=== PATIENT | female | born 1990 | race Native Hawaiian/Other Pacific Islander ===

== ENCOUNTER 2019-04-11 22:46 | Emergency (ER) | payer SELFPAY ==
--- NOTE | 2019-04-11 23:29 | Emergency Department Report ---
ED Syncope HPI - General Chief Complaint: Syncope Stated Complaint: HEAD PAIN/SYNCOPE Time Seen by Provider: 04/11/19 23:27 Source: patient, EMS Exam Limitations: no limitations - History of Present Illness Initial Comments: Patient is a 29-year-old female that presents to emergency room with complaints of dizziness and syncope. Patient states she was playing soccer and she became lightheaded and dizzy and passed out. Patient states she hit the back of her head after she passed out. Patient states she is having a severe headache since hitting her head. Patient states her loss of consciousness was brief and her loss consciousness was witnessed by other players on the field. Patient states her headache as a 10 out of 10. Patient states is not radiating. Patient den ies neck pain. Patient states her last menstrual period was 02/24/19 and patient is irregular. Patient denies possibility of . Patient states she is not sexually active. Timing/Prior Episodes: single episode today Precipitating Factors: Positive: blurred vision, lightheadedness Loss of Consciousness: brief (seconds) Current Symptoms: dizziness, headache, lightheadedness, nausea. denies: blurred vision, chest pain, diaphoresis, injury, loss of bladder control, loss of bowel control, motionless, pale, shallow/rapid breathing, weak/absent pulse, weakness - Related Data Allergies/Adverse Reactions: Allergies No Known Allergies Allergy (Unverified 04/11/19 23:21) ED Review of Systems ROS: Stated complaint: HEAD PAIN/SYNCOPE Other details as noted in HPI Constitutional: denies: chills, fever Eyes: denies: eye pain, eye discharge, vision change ENT: denies: ear pain, throat pain Respiratory: denies: cough, shortness of breath, wheezing Cardiovascular: denies: chest pain, palpitations Endocrine: no symptoms reported Gastrointestinal: denies: abdominal pain, nausea, diarrhea Genitourinary: denies: urgency, dysuria, discharge Musculoskeletal: denies: back pain, joint swelling, arthralgia Skin: denies: rash, lesions Neurological: headache. denies: weakness, paresthesias Psychiatric: denies: anxiety, depression Hematological/Lymphatic: denies: easy bleeding, easy bruising ED Past Medical Hx - Past Medical History Previous Medical History?: No - Surgical History Past Surgical History?: No - Family History Family history: no significant - Social History Smoking Status: Never Smoker Substance Use Type: None ED Physical Exam - General Limitations: No Limitations General appearance: alert, in no apparent distress - Head Head exam: Present: atraumatic, normocephalic, other (tenderness to the posterior head and superior neck.) - Eye Eye exam: Present: normal appearance, PERRL Pupils: Present: normal accommodation - ENT ENT exam: Present: mucous membranes moist - Neck Neck exam: Present: normal inspection, tenderness - Respiratory Respiratory exam: Present: normal lung sounds bilaterally. Absent: respiratory distress, wheezes, rales - Cardiovascular Cardiovascular Exam: Present: regular rate, normal rhythm. Absent: systolic murmur, diastolic murmur, rubs, gallop - GI/Abdominal GI/Abdominal exam: Present: soft, normal bowel sounds. Absent: distended, tenderness, guarding - Rectal Rectal exam: Present: deferred - Extremities Exam Extremities exam: Present: normal inspection, full ROM - Back Exam Back exam: Present: normal inspection - Neurological Exam Neurological exam: Present: alert, oriented X3 - Psychiatric Psychiatric exam: Present: normal affect, normal mood - Skin Skin exam: Present: warm, dry, intact, normal color. Absent: rash ED Course Vital Signs 04/11/19 23:11 Temperature 98.4 F Pulse Rate 88 Respiratory 16 Rate Blood Pressure 129/74 O2 Sat by Pulse 100 Oximetry - Reevaluation(s) Reevaluation #1: Patient states her headaches better but would like some Tylenol. Discussed all results with patient. Patient stable at discharge. Patient will be discharged home.. Patient agrees to plan of care. Patient given discharge instructions. Patient voiced understanding of discharge instructions 04/12/19 01:59 ED Medical Decision Making - Lab Data Result diagrams: 04/11/19 23:33 04/11/19 23:33 - EKG Data -: EKG Interpreted by Oh EKG shows normal: sinus rhythm, axis, intervals, QRS complexes, ST-T waves Rate: normal - Radiology Data Radiology results: report reviewed PROCEDURE: CT CERVICAL SPINE WO CON TECHNIQUE: Computerized tomography of the cervical spine was performed from the skull base to T1 without contrast material. CT DOSE LENGTH PRODUCT: 499.3 mGycm HISTORY: WALSH. SYNCOPE. COMPARISONS: None . FINDINGS: The alignment of the vertebral bodies is normal. No acute fracture or dislocation. The heights of vertebral bodies and the disc spaces are maintained. Spinal canal is adequate at all levels. C1-2: No significant abnormality . C2-3: No significant abnormality . C3-4: No significant abnormality . C4-5: No significant abnormality . C5-6: No significant abnormality . C6-7: No significant abnormality . C7-T1: No significant abnormality . Fractures: None . Other: No additional findings . IMPRESSION: Normal CT cervical spine . PROCEDURE: CT HEAD/BRAIN WO CON TECHNIQUE: Computerized tomography of the head was performed without contrast material. CT DOSE LENGTH PRODUCT: 805.4 mGycm HISTORY: HEAD INJURY. WALSH. SYNCOPE COMPARISONS: None . FINDINGS: Skull and scalp: Normal . Paranasal sinuses: Significant opacification of the left maxillary sinus . Ventricles and subarachnoid spaces: Normal . Cerebrum: No evidence of hemorrhage, acute infarction or mass . Cerebellum and brainstem: No evidence of hemorrhage, acute infarction or mass . Vasculature: Normal . Other: None . ASPECTS: 10 IMPRESSION: There is no evidence of an acute intracranial process . - Medical Decision Making Patient is a 29-year-old female presents emergency room with exertional syncope. Patient's syncope most likely secondary to dehydration and heat exhaustion and adequate water intake. The patient is stable for discharge. Patient's labs are unremarkable. Patient had a CT of head and neck are negative. - Differential Diagnosis syncope. Vasovagal. Head injury. Headache. Critical care attestation.: If time is entered above; I have spent that time in minutes in the direct care of this critically ill patient, excluding procedure time. ED Disposition Clinical Impression: Neck pain Syncope Qualifiers: Syncope type: heat syncope Encounter type: initial encounter Qualified Code(s): T67.1XXA - Heat syncope, initial encounter Head injury Qualifiers: Encounter type: initial encounter Qualified Code(s): S09.90XA - Unspecified injury of head, initial encounter Headache Qualifiers: Headache type: post-traumatic Headache chronicity pattern: acute headache Intractability: not intractable Qualified Code(s): G44.319 - Acute post- traumatic headache, not intractable Heat exhaustion Qualifiers: Encounter type: initial encounter Qualified Code(s): T67.5XXA - Heat exhaustion, unspecified, initial encounter Disposition: DC-01 TO HOME OR SELFCARE Is pt being admited?: No Does the pt Need Aspirin: No Condition: Stable Instructions: Syncope (ED), Dehydration (ED), Muscle Cramp (ED), Heat Exhaustion (ED) Additional Instructions: Patient to follow-up with primary care in 2-3 days. Patient to take Tylenol or ibuprofen when necessary for pain. Patient to return to ER if condition wors ens. Patient to take meds as directed. Patient to increase water. Patient to rest. Patient cannot return to physical activity until cleared by primary care. Referrals: PRIMARY CARE, [Primary Care Provider] - 2-3 Days Time of Disposition: 01:59
[2019-04-11 23:45] LABS: Basophils # (Auto) 0.1 K/mm3 (0.0-0.1); Basophils % (Auto) 0.7 % (0.0-1.8); Eosinophils # (Auto) 0.1 K/mm3 (0.0-0.4); Eosinophils % (Auto) 1.7 % (0.0-4.3); Hematocrit 37.6 % (30.3-42.9); Hemoglobin 12.8 gm/dl (10.1-14.3); Lymphocytes # (Auto) 1.9 K/mm3 (1.2-5.4); Lymphocytes % (Auto) 22.9 % (13.4-35.0); Mean Corpuscular HGB Conc 34 % (30-34); Mean Corpuscular Volume 84 fl (79-97); Monocytes # (Auto) 0.4 K/mm3 (0.0-0.8); Monocytes % (Auto) 4.4 % (0.0-7.3); Platelet Count 300 K/mm3 (140-440); Red Blood Count 4.49 M/mm3 (3.65-5.03)
[2019-04-12 00:04] LABS: BUN/Creatinine Ratio 19; Blood Urea Nitrogen 17 mg/dL (7-17); Calcium 9.6 mg/dL (8.4-10.2); Hemolysis Index 5
[2019-04-12] MEDS ORDERED: TORADOL IV ONE (00:07)
[2019-04-12] MEDS ORDERED: NACL 0.9% 1000 ML 1,000 ML IV ONE (00:29)
--- NOTE | 2019-04-12 01:43 | Cat Scan Report ---
PROCEDURE: CT HEAD/BRAIN WO CON TECHNIQUE: Computerized tomography of the head was performed without contrast material. CT DOSE LENGTH PRODUCT: 805.4 mGycm HISTORY: HEAD INJURY. WALSH. SYNCOPE COMPARISONS: None . FINDINGS: Skull and scalp: Normal . Paranasal sinuses: Significant opacification of the left maxillary sinus . Ventricles and subarachnoid spaces: Normal . Cerebrum: No evidence of hemorrhage, acute infarction or mass . Cerebellum and brainstem: No evidence of hemorrhage, acute infarction or mass . Vasculature: Normal . Other: None . ASPECTS: 10 IMPRESSION: There is no evidence of an acute intracranial process . This document is electronically signed by Tammie Santos DO., Apr 12 2019 01:41:20 AM ET
--- NOTE | 2019-04-12 01:52 | Cat Scan Report ---
PROCEDURE: CT CERVICAL SPINE WO CON TECHNIQUE: Computerized tomography of the cervical spine was performed from the skull base to T1 wit hout contrast material. CT DOSE LENGTH PRODUCT: 499.3 mGycm HISTORY: WALSH. SYNCOPE. COMPARISONS: None . FINDINGS: The alignment of the vertebral bodies is normal. No acute fracture or dislocation. The heights of yudith tebral bodies and the disc spaces are maintained. Spinal canal is adequate at all levels. C1-2: No significant abnormality . C2-3: No significant abnormality . C3-4: No significant abnormality . C4-5: No significant abnormality . C5-6: No significant abnormality . C6-7: No significant abnormality . C7-T1: No significant abnormality . Fractures: None . Other: No additional findings . IMPRESSION: Normal CT cervical spine . This document is electronically signed by Tammie Santos DO., Apr 12 2019 01:50:35 AM ET
[2019-04-12 01:58] LABS: Bilirubin,Urine NEG (Negative); Blood,Urine NEG (Negative); Color,Urine Yellow (Yellow); Mucus,Urine FEW /HPF; Protein,Urine <15 mg/dL mg/dL (Negative); Urobilinogen,Urine < 2.0 mg/dL (<2.0)
[2019-04-12] MEDS ORDERED: TYLENOL PO ONE (02:04)
[2019-04-12 02:31] VITALS: BP 119/78
== END 2019-04-12 02:31 | disposition home or self-care (01) ==
LOC: ED 22:46
DX: S09.90XA Unspecified injury of head, initial encounter (principal); T67.1XXA Heat syncope, initial encounter; T67.5XXA Heat exhaustion, unspecified, initial encounter; G44.319 Acute post-traumatic headache, not intractable; M54.2 Cervicalgia; X58.XXXA Exposure to other specified factors, initial encounter; Y93.66 Activity, soccer; Y92.89 Other specified places as the place of occurrence of the external cause; Y99.8 Other external cause status
CPT/HCPCS: 36415; 70450; 72125; 80048; 81001; 84703; 85025; 93005; 93010; 96361; 96374; 99285; J1885; J7030